=== PATIENT | male | born 1985 | race Two or more races ===

== ENCOUNTER 2019-01-28 17:21 | Emergency (ER) | payer SELFPAY ==
[~2019-01-28] VITALS: Ht 177.8 cm; Wt 77.1 kg
[2019-01-28 17:47] VITALS: BP 139/77
[2019-01-28] MEDS ORDERED: LIDOCAINE 1% PF 2 ML VIAL. INJ ONE (18:15)
[2019-01-28] MEDS ORDERED: DIPHTH,PERTUSS(ACELL),TET TOX 0.5 ML DISP.SYRIN. VAX IM ONE (18:15)
[2019-01-28] MEDS ORDERED: cefTRIAXone IM 1 GM VIAL IM ONE (18:15)
--- NOTE | 2019-01-28 18:27 | RAD ---
Indication:Stepped on a rock. Swelling. TECHNIQUE: 3 views of the left foot COMPARISON:None FINDINGS/ impression: No acute fracture or dislocation. No radiopaque foreign body. Foot swelling. Electronically signed by: Rudy Del Rosario DO (01/28/2019 6:24 PM) [facility]
[2019-01-28] MEDS ORDERED: CIPR500T94 PO (19:30)
--- NOTE | 2019-01-28 19:30 | PHYS DOC ---
Past Medical History Past Medical History: No Pertinent History (MARKUS ZAMORANO APRN) Past Surgical History: No Surgical History (MARKUS ZAMORANO APRN) Alcohol Use: Occasionally Drug Use: None (MARKUS ZAMORANO APRN) Adult General Chief Complaint Chief Complaint: FOOT INJURY PAIN HPI HPI Patient is a 33 year old male with no significant medical history who presents today complaining of left foot swelling and redness that began a couple days ago after stepping on a rock with shoes on. He states the rock pierced through the shoes into his left foot. (MARKUS ZAMORANO APRN) Review of Systems Review of Systems Constitutional: Denies fever or chills [] Musculoskeletal: Denies back pain or joint pain [] Integument: Reports left foot swelling and redness Neurologic: Denies headache, focal weakness or sensory changes [] All other systems were reviewed and found to be within normal limits, except as documented in this note. (MARKUS ZAMORANO APRN) Current Medications Current Medications Current Medications Medications (Trade) Dose Ordered Sig/Ye Start Time Stop Time Status Last Admin Dose Admin Ceftriaxone Sodium (Rocephin Im) 1 gm 1X ONCE 01/28/19 18:15 01/28/19 18:16 DC 01/28/19 18:20 1 GM Diphtheria/ Tetanus/Acell Pertussis (Boostrix) 0.5 ml ONCE ONCE 01/28/19 18:15 01/28/19 18:16 DC 01/28/19 18:20 0.5 ML Lidocaine HCl (Xylocaine-Mpf 1% 2ml Vial) 2 ml 1X ONCE 01/28/19 18:15 01/28/19 18:16 DC 01/28/19 18:21 2 ML (ZOHAIB GALE DO) Allergies Allergies Allergies Coded Allergies Type Severity Reaction Last Updated Verified No Known Drug Allergies 01/28/19 No (ZOHAIB GALE DO) Physical Exam Physical Exam Constitutional: Well developed, well nourished, no acute distress, non-toxic appearance. [] Skin: Warm, dry, left foot with mild soft tissue swelling especially on top of the foot and underneath the toes. There is a puncture wound noted underneath the left second toe. There is no drainage to this area. Full range of motion to the left foot and toes. +2 left pedal pulse. Cap refill less than 2 seconds the left toes. Back: No tenderness, no CVA tenderness. [] Extremities: No tenderness, no cyanosis, no clubbing, ROM intact, no edema. [] Neurologic: Alert and oriented X 3, normal motor function, normal sensory function, no focal deficits noted. [] Psychologic: Affect normal, judgement normal, mood normal. [] (MARKUS ZAMORANO APRN) Current Patient Data Vital Signs Vital Signs Date Time Temp Pulse Resp B/P (MAP) Pulse Ox O2 Delivery O2 Flow Rate FiO2 01/28/19 17:47 98.1 72 20 139/77 (97) 98 Room Air 98.1 (ZOHAIB GALE DO) EKG EKG [] (MARKUS ZAMORANO APRN) Radiology/Procedures Radiology/Procedures []PROCEDURE: FOOT LEFT 3V Indication:Stepped on a rock. Swelling. TECHNIQUE: 3 views of the left foot COMPARISON:None FINDINGS/ impression: No acute fracture or dislocation. No radiopaque foreign body. Foot swelling. Electronically signed by: Rudy Sheth DO (01/28/2019 6:24 PM) [facility] DICTATED and SIGNED BY: RUDY SHETH DO DATE: 01/28/191823 (MARKUS ZAMORANO APRN) Course & Med Decision Making Course & Med Decision Making Pertinent Labs and Imaging studies reviewed. (See chart for details) This is a 33-year-old male patient who presents to the ED today with left foot swelling and redness that began a couple days ago after stepping on a rock. Left foot x-rays interpreted by radiologist are negative for any acute findings. Noted for cellulitis of the foot. Given Rocephin IM in the ED. Discharged on Cipro. Follow-up with PCP in 1-2 weeks. Tetanus updated. (MARKUS ZAMORANO APRN) Dragon Disclaimer Dragon Disclaimer This electronic medical record was generated, in whole or in part, using a voice recognition dictation system. (MARKUS ZAMORANO APRN) Departure Departure Impression: Primary Impression: Cellulitis of left foot Disposition: 01 HOME, SELF-CARE Condition: STABLE Referrals: NO PCP (PCP) follow up in 1 week Patient Instructions: Cellulitis, [id number] Additional Instructions: You have cellulitis of the left foot. We put you on antibiotics. Take them as prescribed until completed. Follow-up with your own doctor in 1-2 weeks. Scripts Ciprofloxacin Hcl (CIPRO) 500 Mg Tablet 1 TAB PO BID, #20 TAB Prov: MARKUS ZAMORANO APRN 01/28/19 Attending Signature Attending Signature I have reviewed the PA/SPORTS COMPLEX ATTENDANT's note and plan of care. I was available for consultation as needed during the patient's visit in the emergency department. I agree with the clinical impression, plan, and disposition. (ZOHAIB GALE DO) MARKUS ZAMORANO APRN Jan 28, 2019 19:30 ZOHAIB GALE DO Jan 29, 2019 01:31
== END 2019-01-28 19:35 | disposition home or self-care (01) ==
LOC: ER 17:21
DX: L03.116 Cellulitis of left lower limb (principal); S91.332A Puncture wound without foreign body, left foot, initial encounter; W22.8XXA Striking against or struck by other objects, initial encounter; Y93.89 Activity, other specified; Y92.89 Other specified places as the place of occurrence of the external cause; Y99.8 Other external cause status
CPT/HCPCS: 73630; 90471; 90715; 99284; J0696